=== PATIENT | female | born 1985 | race Caucasian/White ===

== ENCOUNTER 2023-09-03 14:39 | Emergency (ER) | payer BC ==
[~2023-09-03] VITALS: Ht 160 cm; Wt 72.6 kg
[2023-09-03 14:47] VITALS: BP 145/79; PULSE 88; RESP 16; TEMP 98.7; O2SAT 100
[2023-09-03 15:35] LABS: BASOPHILS # (AUTO) 0.1 K/uL (0.00-0.22); BASOPHILS % (AUTO) 0.8 % (0.0-2.0); EOSINOPHILS # (AUTO) 0.2 K/uL (0-0.4); EOSINOPHILS % (AUTO) 2.2 % (0.0-4.0); HEMATOCRIT 41.3 % (36-48); HEMOGLOBIN 14.4 g/dL (12.0-16.0); LYMPHOCYTES # (AUTO) 3.4 K/uL (2.5-16.5); LYMPHOCYTES % (AUTO) 31.1 % (20.5-51.1); MEAN CORPUSCULAR HEMOGLOBIN 33 pg (27-31); MEAN CORPUSCULAR HGB CONC 35 g/dL (33-37); MEAN CORPUSCULAR VOLUME 95.5 fL (80-94); MONOCYTES # (AUTO) 0.7 K/uL (0.8-1.0); MONOCYTES % (AUTO) 6.7 % (1.7-9.3); NEUTROPHILS # (AUTO) 6.6 K/uL (1.8-7.7); NEUTROPHILS % (AUTO) 59.2 % (42.2-75.2); PLATELET COUNT (AUTO) 355 K/uL (140-450); RED BLOOD CELL COUNT(AUTO) 4.33 MIL/uL (4.20-5.40); RED CELL DISTRIBUTION WIDTH 13.2 % (11.6-13.7); WHITE BLOOD COUNT (AUTO) 11.1 K/uL (4.8-10.8)
[2023-09-03 15:51] LABS: ALBUMIN 3.8 g/dL (3.4-5.0); BILIRUBIN,DIRECT 0.1 mg/dL (0.0-0.3); TOTAL BILIRUBIN 0.3 mg/dL (0.0-1.0)
[2023-09-03 15:58] LABS: ANION GAP 13.5 (8-16); CALCIUM 9.3 mg/dL (8.5-10.1); CARBON DIOXIDE 23.4 mmol/L (21-32); CREATININE 0.6 mg/dL (0.6-1.3); POTASSIUM 3.9 mmol/L (3.5-5.1)
[2023-09-03 18:31] LABS: APPEARANCE,URINE CLEAR (CLEAR); BILIRUBIN,URINE NEGATIVE (NEGATIVE); BLOOD, URINE 1+ (NEGATIVE); COLOR,URINE YELLOW (YELLOW); LEUKOCYTE ESTERASE ,URINE NEGATIVE (NEGATIVE); NITRITE, URINE NEGATIVE (NEGATIVE); PROTEIN,URINE NEGATIVE (NEGATIVE); UGLUCOSE NEGATIVE (NEGATIVE)
[2023-09-03] MEDS ORDERED: IBUP-2213 PO (18:37)
[2023-09-03 18:54] VITALS: BP 136/80; PULSE 73; RESP 19; TEMP 98.3; O2SAT 97
[2023-09-04] MEDS ORDERED: DOCU-299 PO (15:28)
[2023-09-04] MEDS ORDERED: ACET-503 PO (15:28)
== END 2023-09-03 18:53 | disposition home or self-care (01) ==
LOC: MED 14:39
DX: N83.202 Unspecified ovarian cyst, left side (principal); K56.7 Ileus, unspecified; Z79.899 Other long term (current) drug therapy; Z98.890 Other specified postprocedural states
CPT/HCPCS: 36415; 74177; 80048; 80076; 81003; 81025; 83690; 85025; 99285; Q9967

== ENCOUNTER 2023-09-04 14:48 | Emergency (ER) | payer BC ==
[~2023-09-04] VITALS: Ht 160 cm; Wt 72.6 kg
[~2023-09-04 14:48] MED LIST: IBUP-2213 PO
[2023-09-04 15:02] VITALS: BP 121/69; PULSE 86; RESP 18; TEMP 98.3; O2SAT 100
[2023-09-04] MEDS ORDERED: DOCU-299 PO (15:28)
[2023-09-04] MEDS ORDERED: ACET-503 PO (15:28)
[2023-09-04] MEDS: MORPHINE SULFATE 4 MG/ML SYR IM ONE (15:42)
[2023-09-04 16:07] VITALS: BP 121/69; PULSE 86; RESP 18; TEMP 98.3; O2SAT 100
== END 2023-09-04 16:07 | disposition home or self-care (01) ==
LOC: MED 14:48
DX: N83.202 Unspecified ovarian cyst, left side (principal); Z79.899 Other long term (current) drug therapy
CPT/HCPCS: 96372; 99283; J2270